=== PATIENT | female | born 1955 | race Caucasian/White ===

== ENCOUNTER 2016-10-13 16:25 | Emergency (ER) | payer OTHER ==
[~2016-10-13] VITALS: Ht 165.1 cm; Wt 85.0 kg
[2016-10-13 16:52] VITALS: Ht 165.1 cm; Wt 85.0 kg
[2016-10-13 21:43] LABS: URINE BLOOD (Dip) POC 1+ (NEGATIVE)
--- NOTE | 2016-10-13 21:55 | ERD ---
ER Documentation Chief Complaint Date/Time DATE: 10/13/16 TIME: 21:43 Chief Complaint RIGHT BREAST PAIN AND ENLARGEMENT.POSSIBLE ABSCESS PER PMD HPI 61-year-old female complaining of right breast pain and enlargement 4 days. Describes the pain as sharp, needling and burning type of sensation. She was sent here by her PCP for a breast ultrasound to rule out possible abscess. Her last mammogram was 2 years ago. Her sister has history of breast cancer. Patient also complaining of suprapubic pain 2 weeks. She was diagnosed with UTI by her PCP, was given Bactrim. She finished Bactrim 4 days ago. Patient is still complaining of suprapubic pain and urinary frequency. States that Bactrim did not help. Denies fever or chills. Denies flank pain. Denies dysuria. ROS All systems reviewed and are negative except as per history of present illness. Medications Home Meds No Active Prescriptions or Reported Meds Allergies Allergies: Coded Allergies: Penicillins (Verified Allergy, Severe, ANAPHALACTIC SHOCK, 09/11/14) PMhx/Soc History of Surgery: Yes (HEMORROIDECTOMY, HYSTERECTOMY, 2 BREASTS BIOPSY, BACK SURGERY) Anesthesia Reaction: No Hx Neurological Disorder: No Hx Respiratory Disorders: No Hx Cardiac Disorders: No Hx Psychiatric Problems: No Hx Miscellaneous Medical Probl: No Hx Alcohol Use: No Hx Substance Use: No Hx Tobacco Use: No Smoking Status: Never smoker Physical Exam Vitals Vital Signs Date Time Temp Pulse Resp B/P Pulse Ox O2 Delivery O2 Flow Rate FiO2 10/13/16 16:52 99.8 84 18 147/76 98 Physical Exam General impression: Well-developed, well-nourished. Alert, oriented, in no acute distress Head: Normocephalic, atraumatic. Neck: Supple, nontender. No lymphanopathy. No nuchal rigidity. Respiration: Normal respiratory effort. Lungs clear to auscultate bilaterally. No wheezes, rales or rhonchi. Cardiovascular: Regular rate and rhythm. No murmurs or extra heart sounds. Abdomen: Abdomen normal to inspection. Nontender. No masses or organomegaly. Bowel sounds normal. Breasts: Right breast slightly larger in appearance than the left, no erythema. Periauricular tenderness, no mass or indurations. No axillary lymph nodes palpated. Back: Normal to inspection. No midline spine tenderness. No CVA tenderness. Neuro: Mental status normal, speech normal. NURSES SUPERVISOR grossly intact. Skin: Normal turgor. No rash or lesions. Psych: Normal mood and affect. Procedures/MDM Urine dip showed 2+ leukocyte, negative nitrite, 1+ blood. She still has a UTI , likely resistant to Bactrim. I doubt pyelonephritis. I will prescribe her with Macrobid. Her breasts has a normal appearance, no sign of abscess. However I was unable to perform breast ultrasound at this time because there is no radiologist for breast ultrasound after hours. I will prescribe patient was medication for pain , and have her come back tomorrow morning to get the breast ultrasound. Patient appears well, stable for discharge and outpatient management. Medical decision making shared with patient and family. Education provided to patient and family. Patient and family expressed understanding of the plan. Medications on discharge: Macrobid, [place]. Follow-up: Primary care provider in 2-3 days or return to ED if worse. KAMALA NAVAS NP Oct 13, 2016 21:54
[2016-10-13] MEDS ORDERED: NITR-58 PO (21:56)
[2016-10-13] MEDS ORDERED: HYDR-906 PO (21:56)
[2016-10-13 22:14] VITALS: BP 142/79; PULSE 80; RESP 18
== END 2016-10-13 22:19 | disposition home or self-care (01) ==
LOC: FTE 16:25
DX: N64.4 Mastodynia (principal); N39.0 Urinary tract infection, site not specified
CPT/HCPCS: 81003; 87086; 99284

== ENCOUNTER 2016-10-14 09:14 | Emergency (ER) | payer OTHER ==
[~2016-10-14] VITALS: Ht 167.6 cm; Wt 98.0 kg
[~2016-10-14 09:14] MED LIST: HYDR-906 PO; NITR-58 PO
[2016-10-14 09:19] VITALS: Ht 167.6 cm; Wt 98.0 kg
[2016-10-14] MEDS ORDERED: ALBUTEROL 0.5% (NEB) 2.5 MG/0.5 ML AMP NEB STA (10:10)
--- NOTE | 2016-10-14 11:12 | RADRPT ---
PROCEDURE: XR Chest. CLINICAL INDICATION: Dyspnea TECHNIQUE: Single frontal chest x-ray. COMPARISON: 08/26/2014 FINDINGS: No acute infiltrate, pleural effusion or pneumothorax is identified. Cardiomediastinal silhouette i s within normal limits. Aortic atherosclerotic calcification is noted. The osseous structures are unremarkable. IMPRESSION: 1. No evidence of acute cardiopulmonary process. 2. Aortic atherosclerosis. RPTAT: QQ .Ajay Suarez MD, MD Date Time Electronically viewed and signed by .Ajay Suarez MD, MD on 10/14/2016 11:11 .R/
--- NOTE | 2016-10-14 14:25 | RADRPT ---
PROCEDURE: Bilateral breast ultrasound. CLINICAL INDICATION: Breast pain. TECHNIQUE: Multiple arnold scale ultrasound images of the whole right and left breast was performed with a high frequency linear transducer. The images were reviewed on a high-resolution PACS monitor . COMPARISON: None available. FINDINGS: Right breast: There is an irregular hypoechoic mass measuring 8 x 5 mm with no internal vascularity and partially indistinct margins. No additional mass, cyst, or sonographic abnormality is identifie d. The axilla is unremarkable. Left breast: There is no mass, cyst, or sonographic abnormality. IMPRESSION: 1. Suspicious irregular 8 mm mass in the right breast at 9 o'clock. 2. No sonographic evidence of malignancy in the left breast. BIRADS 0: Incomplete - Need additional imaging evaluation and/or prior mammograms for comparison. Bi lateral diagnostic mammogram is recommended to complete the workup. However, ultrasound-guided biop sy of the right breast mass is recommended regardless of the mammogram results. RPTAT: GG .Chuy Brandt MD, MD Date Time Electronically viewed and signed by .Chuy Brandt MD, MD on 10/14/2016 14:25 .P/
[2016-10-14 15:15] VITALS: BP 134/71; PULSE 74; RESP 18; TEMP 98.1
--- NOTE | 2016-10-14 17:02 | ERD ---
ER Documentation Chief Complaint Date/Time DATE: 10/14/16 TIME: 16:58 Chief Complaint Sent from MD for ultrasound request HPI 61-year-old female with a past medical history of hemorrhoidectomy and hysterectomy presents to the ED complaining of right breast pain that started intermittently 5 years ago. States that it has been getting worse in the last 2 years. States that her last mammogram was 2 years ago and was negative for any findings. States that her doctor, Dr. Radha Almaraz sent her here for a breast ultrasound. Reports that yesterday her breasts were red and inflamed feeling but denies any nipple discharge. States that she has generalized right breast pain. Denies any chest pain, shortness of breath, wheezing, cough, rhinorrhea, fever, chills, abdominal pain, nausea, vomiting. ROS All systems reviewed and are negative except as per history of present illness. Medications Home Meds Active Scripts Nitrofurantoin Monohyd Macrocr* (Macrobid*) 100 Mg Capsr, 100 MG PO BID for 7 Days, CAP Prov:KAMALA NAVAS. SUPERVISOR PRODUCTION MANAGING 10/13/16 Hydrocodone/Acetaminophen ([place] 5-325 Tablet) 1 Each Tablet, 1 TAB PO Q6H Y for PAIN, #5 TAB Prov:KAMALA NAVAS. SUPERVISOR PRODUCTION MANAGING 10/13/16 Allergies Allergies: Coded Allergies: Penicillins (Verified Allergy, Severe, ANAPHALACTIC SHOCK, 09/11/14) PMhx/Soc History of Surgery: Yes (HEMORROIDECTOMY, HYSTERECTOMY, 2 BREASTS BIOPSY, BACK SURGERY) Anesthesia Reaction: No Hx Neurological Disorder: No Hx Respiratory Disorders: No Hx Cardiac Disorders: No Hx Psychiatric Problems: No Hx Miscellaneous Medical Probl: No Hx Alcohol Use: No Hx Substance Use: No Hx Tobacco Use: No Physical Exam Vitals Vital Signs Date Time Temp Pulse Resp B/P Pulse Ox O2 Delivery O2 Flow Rate FiO2 10/14/16 15:15 98.1 74 18 134/71 98 Room Air 10/14/16 10:32 79 18 96 21 10/14/16 09:19 98.3 78 20 140/73 97 Physical Exam Const: Ymh-sdd-lwkwepcol, well-nourished. In no acute distress. Head: Atraumatic, normocephalic Eyes: Normal Conjunctiva without injection. No purulent discharge. PERRL. EOMI ENT: Normal external ear. Ear canal without erythema. Tympanic membrane pearly arnold without effusion or bulging. Nasal canal clear with normal turbinates. Moist oropharynx without tonsillar exudates. Non-erythematous pharynx. Uvula midline. No drooling. No trismus. Neck: Full range of motion. No meningismus. No cervical lymphadenopathy. Resp: Clear to auscultation bilaterally. No wheezing, rhonchi, rales, or crackles. No accessory muscle use. No retractions. Cardio: Regular rate and rhythm. No murmurs, rubs or gallops. Breast: Generalized tenderness to palpation of right breast. No areolar purulent discharge. No erythema. No edema. Abd: Soft, non tender, non distended. Normal bowel sounds. No palpable masses. No rebound tenderness. No guarding. Skin: No petechiae or rashes Back: No midline tenderness. No CVA tenderness. Ext: No cyanosis, or edema. Neur: Awake and alert. Psych: Normal Mood and Affect Results 24 hrs Current Medications Medications (Trade) Dose Ordered Sig/Roxann Route PRN Reason Start Time Stop Time Status Last Admin Dose Admin Albuterol (Proventil 0.5% (Neb)) 5 mg ONCE STAT NEB 10/14/16 10:10 10/14/16 10:12 DC 10/14/16 10:30 Procedures/MDM 61-year-old female with no significant past medical history presents the ED complaining of right breast pain. Patient is afebrile and nontoxic-appearing. Patient has normal vital signs. Patient was given a breathing treatment here in the ED since she stated that she also has shortness of breath due to having anxiety. She does have a history of asthma. A 5 mg 1 time breathing treatment consisting of albuterol was ordered to further treat patient here in the ED with improvement. Chest xray was ordered to further evaluate patient. PROCEDURE: Bilateral breast ultrasound. CLINICAL INDICATION: Breast pain. TECHNIQUE: Multiple arnold scale ultrasound images of the whole right and left breast was performed with a high frequency linear transducer. The images were reviewed on a high-resolution PACS monitor. COMPARISON: None available. FINDINGS: Right breast: There is an irregular hypoechoic mass measuring 8 x 5 mm with no internal vascularity and partially indistinct margins. No additional mass, cyst , or sonographic abnormality is identified. The axilla is unremarkable. Left breast: There is no mass, cyst, or sonographic abnormality. IMPRESSION: 1. Suspicious irregular 8 mm mass in the right breast at 9 o'clock. 2. No sonographic evidence of malignancy in the left breast. BIRADS 0: Incomplete - Need additional imaging evaluation and/or prior mammograms for comparison. Bilateral diagnostic mammogram is recommended to complete the workup. However, ultrasound-guided biopsy of the right breast mass is recommended regardless of the mammogram results. PROCEDURE: XR Chest. CLINICAL INDICATION: Dyspnea TECHNIQUE: Single frontal chest x-ray. COMPARISON: 08/26/2014 FINDINGS: No acute infiltrate, pleural effusion or pneumothorax is identified. Cardiomediastinal silhouette is within normal limits. Aortic atherosclerotic calcification is noted. The osseous structures are unremarkable. IMPRESSION: 1. No evidence of acute cardiopulmonary process. 2. Aortic atherosclerosis. Patient was noted to have a suspicious irregular 8 mm mass on the 9 o'clock position of the right breast. Strictly instructed patient to follow-up with her primary care physician or NEWS AGENT for further care and treatment with a ultrasound-guided biopsy or mammogram. Differential diagnosis considered include but is not limited to mastitis, fibroadenoma, cyst, fibrocystic changes , galactocele, fat necrosis, malignancy. Low suspicion for sepsis, cellulitis, or other emergent conditions. Follow up with primary care physician in 1-2 days. Instructed patient to return to the ED sooner for any worsening symptoms. Patient's questions were answered. Patient understood and agreed with discharge plan. Patient discharged stable. Departure Diagnosis: Primary Impression: Breast mass, right Condition: Stable Patient Instructions: Breast Mass, Uncertain Cause Referrals: [facility] YOU HAVE RECEIVED A MEDICAL SCREENING EXAM AND THE RESULTS INDICATE THAT YOU DO NOT HAVE A CONDITION THAT REQUIRES URGENT TREATMENT IN THE EMERGENCY DEPARTMENT. FURTHER EVALUATION AND TREATMENT OF YOUR CONDITION CAN WAIT UNTIL YOU ARE SEEN IN YOUR DOCTORS OFFICE WITHIN THE NEXT 1-2 DAYS. IT IS YOUR RESPONSIBILITY TO MAKE AN APPOINTMENT FOR FOLOW-UP CARE. IF YOU HAVE A PRIMARY DOCTOR --you should call your primary doctor and schedule an appointment IF YOU DO NOT HAVE A PRIMARY DOCTOR YOU CAN CALL OUR PHYSICIAN REFERRAL HOTLINE AT IF YOU CAN NOT AFFORD TO SEE A PHYSICIAN YOU CAN CHOSE FROM THE FOLLOWING [facility] [address] [facility]. [facility]818) [phone] [facility]. [facility] [address] [facility] [address] [facility] [address] [facility] [facility]. [address] [facility]. [facility] YOU HAVE RECEIVED A MEDICAL SCREENING EXAM AND THE RESULTS INDICATE THAT YOU DO NOT HAVE A CONDITION THAT REQUIRES URGENT TREATMENT IN THE EMERGENCY DEPARTMENT. FURTHER EVALUATION AND TREATMENT OF YOUR CONDITION CAN WAIT UNTIL YOU ARE SEEN IN YOUR DOCTORS OFFICE WITHIN THE NEXT 1-2 DAYS. IT IS YOUR RESPONSIBILITY TO MAKE AN APPOINTMENT FOR FOLOW-UP CARE. IF YOU HAVE A PRIMARY DOCTOR --you should call your primary doctor and schedule and appointment IF YOU DO NOT HAVE A PRIMARY DOCTOR YOU CAN CALL OUR PHYSICIAN REFERRAL HOTLINE AT . IF YOU CAN NOT AFFORD TO SEE A PHYSICIAN YOU CAN CHOSE FROM THE FOLLOWING [facility] INSTITUTIONS: [facility] [address] [place] [address] [facility] [address] [place] [address] [facility] + [facility] [address] [place] [address] [facility] [place] [address] [facility] [address] [place], [place] [phone] OFFICE FAX VIVIENNE POSEY [address] [place], [place] [phone] [address] [facility] [address] [place], [place] [phone] [place]VIA [place]JAS [address] [facility], [address] [address] [address] [address] [facility] [place], [place] [phone] [facility] [address] [place], [place] [id number] [address] [facility] [id number] - PETTY YU [address] [facility] [phone] [place], [place] [address] [facility]. [address], [facility] [address] [address], [facility] [address] [place], [place] [phone] [facility] Hours: 8:00 am - 5:00 pm Additional Instructions: FOLLOW UP WITH YOUR PRIMARY CARE PHYSICIAN TOMORROW.Return to this facility if you are not improving as expected. SHARON SAEED PA-C Oct 14, 2016 17:02
== END 2016-10-14 15:15 | disposition home or self-care (01) ==
LOC: FTE 09:14
DX: N63 Unspecified lump in breast (principal)
CPT/HCPCS: 71010; 94664

== ENCOUNTER 2016-12-28 09:10 | Emergency (ER) | payer OTHER ==
[~2016-12-28] VITALS: Ht 165.1 cm; Wt 84.0 kg
[~2016-12-28 09:10] MED LIST changes: +[UNRECOGNIZED DRUG - REMARK]
[2016-12-28 09:26] VITALS: Ht 165.1 cm; Wt 84.0 kg
[2016-12-28] MEDS ORDERED: SOD CHLORIDE 0.9% 1,000 ML IV STA (10:02)
[2016-12-28] MEDS ORDERED: ONDANSETRON 4 MG INJ IV STA (10:02)
[2016-12-28] MEDS ORDERED: KETOROLAC 15 MG INJ IV STA (10:02)
--- NOTE | 2016-12-28 10:14 | ERD ---
ER Documentation Chief Complaint Date/Time DATE: 12/28/16 TIME: 10:11 Chief Complaint LOWER BACK PAIN, VAGINAL ITCHING AND BURNING HPI This is a 61-year-old female with no relevant medical problems presenting to the emergency room complaining of achy and sharp right lower back pain rating it 8 out of 10 that radiates down to her pelvic region for the past 2 days. Patient also complains of burning with urination and some mild vaginal itching. Patient denies any vaginal discharge. Patient admits to having mild nausea. She denies any fevers, hematuria, patient states that she took no medications for this. Patient states that her last follow-up with the primary care physician was 1 month ago and states that they have never told her any of the results but she is assuming that everything is normal. Patient is working on following up with a primary care physician ROS All systems reviewed and are negative except as per history of present illness. Medications Home Meds Active Scripts Fluconazole* (Diflucan*) 150 Mg Tablet, 150 MG PO ONCE, #2 TAB Prov:LOUIS GAONA PA-C 12/28/16 Acetaminophen* (Tylenol*) 325 Mg Tablet, 2 TAB PO Q4 Y for PAIN AND OR ELEVATED TEMP, #20 TAB Prov:LOUIS GAONA PA-C 12/28/16 Ciprofloxacin Hcl* (Ciprofloxacin Hcl*) 500 Mg Tablet, 500 MG PO BID, #14 TAB Prov:LOUIS GAONA PA-C 12/28/16 Nitrofurantoin Monohyd Macrocr* (Macrobid*) 100 Mg Capsr, 100 MG PO BID for 7 Days, CAP Prov:KAMALA NAVAS. HEART COORDINATOR 10/13/16 Hydrocodone/Acetaminophen ([place] 5-325 Tablet) 1 Each Tablet, 1 TAB PO Q6H Y for PAIN, #5 TAB Prov:KAMALA NAVAS. HEART COORDINATOR 10/13/16 Allergies Allergies: Coded Allergies: Penicillins (Verified Allergy, Severe, ANAPHALACTIC SHOCK, 12/28/16) PMhx/Soc History of Surgery: Yes (HEMORROIDECTOMY, HYSTERECTOMY, 2 BREASTS BIOPSY, BACK SURGERY) Anesthesia Reaction: No Hx Neurological Disorder: No Hx Respiratory Disorders: No Hx Cardiac Disorders: No Hx Psychiatric Problems: No Hx Miscellaneous Medical Probl: Yes (uti) Hx Alcohol Use: No Hx Substance Use: No Hx Tobacco Use: No Smoking Status: Never smoker Physical Exam Vitals Vital Signs Date Time Temp Pulse Resp B/P Pulse Ox O2 Delivery O2 Flow Rate FiO2 12/28/16 09:26 98.3 71 20 142/79 98 Physical Exam GENERAL: well-developed/well-nourished, in no apparent distress, non-toxic appearing HENT: NC/AT, moist mucous membranes EYES: Conjunctiva normal NECK: Supple, no lymphadenopathy PULM: CTA bilaterally, no rales, rhonchi, or wheezing heard CV: Normal S1S2, RRR, good capillary refill GI: Soft, non-distended,non- tender to palpation Normal bowel sounds, no masses or organomegaly felt on exam No gross peritonitis, no bruits Negative Rovsing, negative Armas, negative McBurney's point, mild CVAT on the right BACK: No masses EXT: No clubbing, cyanosis, or edema NEURO: Alert and Orientated SKIN: Intact, normal turgor PSYCH: Normal mood and mentation Result Diagram: 12/28/16 1020 12/28/16 1020 Results 24 hrs Laboratory Tests Test 12/28/16 10:05 12/28/16 10:20 Urine Color LT. YELLOW Urine Clarity CLEAR Urine pH 6.5 Urine Specific [place] <=1.005 Urine Ketones NEGATIVE Urine Nitrite NEGATIVE Urine Bilirubin NEGATIVE Urine Urobilinogen 0.2 E.U./dL Urine Leukocyte Esterase NEGATIVE Urine Microscopic RBC 5-10/HPF Urine Microscopic WBC 5-10/HPF Urine Epithelial Cells FEW Urine Hemoglobin TRACE Urine Glucose NEGATIVE% Urine Total Protein NEGATIVE White Blood Count 9.110^3/ul Red Blood Count 4.8710^6/ul Hemoglobin 14.6g/dl Hematocrit 44.1% Mean Corpuscular Volume 90.6fl Mean Corpuscular Hemoglobin 30.0pg Mean Corpuscular Hemoglobin Concent 33.1g/dl Red Cell Distribution Width 13.0% Platelet Count 61924^3/UL Mean Platelet Volume 9.8fl Neutrophils % 59.5% Lymphocytes % 29.5% Monocytes % 6.1% Eosinophils % 3.7% Basophils % 1.0% Nucleated Red Blood Cells % 0.0/100WBC Neutrophils # 5.410^3/ul Lymphocytes # 2.710^3/ul Monocytes # 0.610^3/ul Eosinophils # 0.310^3/ul Basophils # 0.110^3/ul Nucleated Red Blood Cells # 0.010^3/ul Sodium Level 139mmol/L Potassium Level 4.4mmol/L Chloride Level 101mmol/L Carbon Dioxide Level 29mmol/L Anion Gap 13 Blood Urea Nitrogen 14mg/dl Creatinine 0.71mg/dl Glucose Level 89mg/dl Calcium Level 9.7mg/dl Total Bilirubin 0.1mg/dl Direct Bilirubin 0.00mg/dl Indirect Bilirubin 0.1mg/dl Aspartate Amino Transf (AST/SGOT) 36IU/L Alanine Aminotransferase (ALT/SGPT) 35IU/L Alkaline Phosphatase 80IU/L Total Protein 8.3g/dl Albumin 4.5g/dl Globulin 3.80g/dl Albumin/Globulin Ratio 1.18 Lipase 172U/L Current Medications Medications (Trade) Dose Ordered Sig/Roxann Route PRN Reason Start Time Stop Time Status Last Admin Dose Admin Sodium Chloride (NS) 1,000 ml @ 1,000 mls/hr Q1H STAT IV 12/28/16 10:02 12/28/16 11:01 DC 12/28/16 10:37 Ondansetron HCl (Zofran Inj) 4 mg ONCE STAT IV 12/28/16 10:02 12/28/16 10:04 DC 12/28/16 10:43 Ketorolac Tromethamine (Toradol) 15 mg ONCE STAT IV 12/28/16 10:02 12/28/16 10:04 DC 12/28/16 10:43 Procedures/MDM This is a 61-year-old female with no relevant medical problems presenting to the emergency room complaining of burning with urination, achy and sharp right lower back pain rating it 8 out of 10 that radiates down to her abdomen/pelvic region for the past 2 days. IV access is established. Lab work was drawn. CBC did not show any evidence of leukocytosis or anemia. CMP did not show any evidence of renal, liver or electrolyte abnormalities. A urinalysis was done and it did show 5-10 white blood cell and 5-10 red blood cell Patient was given Toradol and Zofran through IV with 1 L fluids. I have reassessed patient and she had some improvement I have discussed with patient the importance of a CT scan of the abdomen however patient refused. A renal ultrasound was compromised instead. Radiologist stated - "Unremarkable renal ultrasound. No hydronephrosis." I have reassessed patient and she still continue to have pain therefore she agreed to have a CT scan of the abdomen. CT of the abdomen and pelvis without contrast was done and radiologist stated: 1. Colonic diverticulosis without CT evidence of diverticulitis. 2. No evidence of calcified urinary calculi or obstructive uropathy. 3. Unremarkable appendix. 4. Status post cholecystectomy without biliary ductal dilation. I have done a pelvic exam on the patient, however with insertion of the speculum patient did not want me to go any further and refused a complete examination. I was unable to see the cervix. I did a fungal wet mount of the swab to the vaginal canal. Patient will be treated for a urinary tract infection, candidiasis vaginitis, and will be given medications for abdominal pain. There was no evidence of nephrolithiasis, pyelonephritis, appendicitis, diverticulitis. Patient is suitable to follow-up with her primary care physician for further evaluation management. Discussed return to the emergency room for any worsening signs or symptoms. Patient understands and agrees with this plan Departure Diagnosis: Primary Impression: Flank pain Additional Impressions: UTI (urinary tract infection) Diverticulosis Condition: Stable LOUIS GAONA PA-C Dec 28, 2016 10:14
[2016-12-28 10:23] LABS: ADD UMIC YES; UR BILIRUBIN (Dip) NEGATIVE (NEGATIVE); UR BLOOD (Dip) TRACE (NEGATIVE); UR CLARITY CLEAR (CLEAR); UR COLOR LT. YELLOW (YELLOW); UR GLUCOSE (Dip) NEGATIVE (NEGATIVE); UR KETONES (Dip) NEGATIVE (NEGATIVE); UR LEUKOCYTE ESTERASE (Dip) NEGATIVE (NEGATIVE); UR NITRITE (Dip) NEGATIVE (NEGATIVE); UR TOTAL PROTEIN (Dip) NEGATIVE (NEGATIVE); UR UROBILINOGEN (Dip) 0.2 E.U./dL (0.1-1.0)
[2016-12-28 10:47] LABS: ADD SCAN DIFF NO
[2016-12-28 11:09] LABS: BASOPHIL # 0.1 10^3/ul (0.0-0.1); EOSINOPHILS # 0.3 10^3/ul (0.0-0.5); EOSINOPHILS % 3.7 % (0.0-7.0); HEMATOCRIT 44.1 % (37.0-47.0); HEMOGLOBIN 14.6 g/dl (12.0-16.0); LYMPHOCYTES # 2.7 10^3/ul (0.8-2.9); LYMPHOCYTES % 29.5 % (15.0-51.0); MEAN CORPUSCULAR HGB CONC 33.1 g/dl (32.0-37.0); MEAN CORPUSCULAR VOLUME 90.6 fl (82.0-101.0); MEAN PLATELET VOLUME 9.8 fl (7.4-10.4); MONOCYTE # 0.6 10^3/ul (0.3-0.9); MONOCYTES % 6.1 % (0.0-11.0); NEUTROPHIL # 5.4 10^3/ul (1.6-7.5); NEUTROPHILS % 59.5 % (39.0-77.0); PLATELET COUNT 319 10^3/UL (140-415); RED BLOOD COUNT 4.87 10^6/ul (4.20-5.40); WHITE BLOOD COUNT 9.1 10^3/ul (4.8-10.8)
[2016-12-28 11:13] LABS: ALBUMIN 4.5 g/dl (3.3-4.9); ALBUMIN/GLOBULIN RATIO 1.18; BILIRUBIN,INDIRECT 0.1 mg/dl (0-1.1); BILIRUBIN,TOTAL 0.1 mg/dl (0.2-1.3); CALCIUM 9.7 mg/dl (8.4-10.2); CREATININE 0.71 mg/dl (0.44-1.00); POTASSIUM 4.4 mmol/L (3.5-5.1); TOTAL PROTEIN 8.3 g/dl (6.1-8.1)
--- NOTE | 2016-12-28 12:13 | RADRPT ---
PROCEDURE: US KIDNEYS AND BLADDER CLINICAL INDICATION: Renal insufficiency TECHNIQUE: Sonographic evaluation of the kidneys and bladder was performed using a curved array tr ansducer. COMPARISON: None. FINDINGS: Right kidney measures 11.5 cm in length. Left kidney measures 10.8 cm in length. Normal cortical thickness and echogenicity. No hydronephrosis bilaterally. The incompletely distended bladder is grossly unremarkable. Bilateral ureteral jets are seen. IMPRESSION: Unremarkable renal ultrasound. No hydronephrosis. RPTAT:PP .Jefferson Pappas MD, MD Date Time Electronically viewed and signed by .Jefferson Pappas MD, on 12/28/2016 12:12 .V/
--- NOTE | 2016-12-28 13:13 | RADRPT ---
PROCEDURE: CT Abdomen and pelvis without contrast. CLINICAL INDICATION: flank pain radiating to abdomen TECHNIQUE: CT scan of the abdomen and pelvis without contrast was performed on a multidetector hig h-resolution CT scan. . Coronal and sagittal reformatted images were obtained from the axial [facility] e images. Standard CT scan of the abdomen pelvis without contrast protocols were performed. The total exam CTDI equals 19.05 mGy and the total exam DLP equals 1149.95 mGy-cm. One or more of the following dose reduction techniques were used: - Automated exposure control. - Adjustment of the mA and/or kV according to patient size. Use of iterative reconstruction technique. COMPARISON: Ultrasound same day FINDINGS: The kidneys are normal in size without calcified renal calculi, hydronephrosis or intrarenal masses bilaterally. The ureters are unremarkable. Urinary bladder is partially contracted but otherwise u nremarkable. There is mild scattered colonic diverticulosis but no CT evidence of diverticulitis. Large bowel is otherwise unremarkable. The appendix is unremarkable. There is a small hiatal hernia. The stomac h is otherwise unremarkable. The small bowel is unremarkable. Status post cholecystectomy. No evidence of biliary ductal dilation. The liver spleen pancreas and adrenal glands are unremarkable. Negative for intra-abdominal free air, free fluid, abscesses or lymphadenopathy. There is minimal at herosclerotic vascular disease present. No evidence of abdominal aortic aneurysm or periaortic flui d collections. The lung bases are unremarkable. There is mild degenerative changes lower thoracic and lumbar spine . There are no acute osseous findings. No osteoblastic/osteolytic lesions. There is a tiny fat co ntaining umbilical hernia but no herniated bowel or strangulation. IMPRESSION: 1. Colonic diverticulosis without CT evidence of diverticulitis. 2. No evidence of calcified urinary calculi or obstructive uropathy. 3. Unremarkable appendix. 4. Status post cholecystectomy without biliary ductal dilation. RPTAT:AAJJ Physician Ernesto Date Time Electronically viewed and signed by Physician Ernesto on 12/28/2016 13:12 BM/
[2016-12-28] MEDS ORDERED: ACET325T33 PO (13:40)
[2016-12-28] MEDS ORDERED: CIPR500T4 PO (13:40)
[2016-12-28] MEDS ORDERED: FLUC150T17 PO (13:41)
[2016-12-28 13:58] VITALS: BP 128/68; PULSE 77; RESP 18
== END 2016-12-28 13:59 | disposition home or self-care (01) ==
LOC: FTE 09:10
DX: R10.9 Unspecified abdominal pain (principal); N39.0 Urinary tract infection, site not specified; K57.91 Diverticulosis of intestine, part unspecified, without perforation or abscess with bleeding; R11.0 Nausea
CPT/HCPCS: 74176; 76775; 80053; 81001; 83690; 85025; 87086; 87220; 96374; 96375; 99285; J1885; J2405; J7030; 81003

== ENCOUNTER 2017-05-10 17:54 | Emergency (ER) | payer OTHER ==
[~2017-05-10] VITALS: Ht 160 cm; Wt 80.0 kg
[~2017-05-10 17:54] MED LIST changes: +ACET325T33 PO; +CIPR500T4 PO; +FLUC150T17 PO; -[UNRECOGNIZED DRUG - REMARK]
[2017-05-10 17:58] VITALS: Ht 160 cm; Wt 80.0 kg
--- NOTE | 2017-05-10 21:18 | ERD ---
ER Documentation Chief Complaint Date/Time DATE: 05/10/17 TIME: 21:03 Chief Complaint dusuria x1 week HPI This is a 61-year-old female with a history of multiple urine tract infections who presents to the emergency department for complaints of dysuria, increased frequency which has gradually worsened over the past week. Patient states that she has experienced chills today but denies fever, back pain, abdominal pain, nausea, vomiting, diarrhea. She states she is attempted to treat her symptoms with Tylenol with little relief. ROS All systems reviewed and are negative except as per history of present illness. Medications Home Meds Active Scripts Acetaminophen with Codeine (Acetaminophen-Cod #3 Tablet) 1 Each Tablet, 1 TAB PO Q6H Y for PAIN, #20 TAB Prov:CATY AHMADI PA-C 05/10/17 Ciprofloxacin Hcl* (Ciprofloxacin Hcl*) 500 Mg Tablet, 500 MG PO BID, #14 TAB Prov:CATY AHMADI PA-C 05/10/17 Fluconazole* (Diflucan*) 150 Mg Tablet, 150 MG PO ONCE, #2 TAB Prov:LOUIS GAONA PA-C 12/28/16 Acetaminophen* (Tylenol*) 325 Mg Tablet, 2 TAB PO Q4 Y for PAIN AND OR ELEVATED TEMP, #20 TAB Prov:LOUIS GAONA PA-C 12/28/16 Ciprofloxacin Hcl* (Ciprofloxacin Hcl*) 500 Mg Tablet, 500 MG PO BID, #14 TAB Prov:LOUIS GAONA PA-C 12/28/16 Nitrofurantoin Monohyd Macrocr* (Macrobid*) 100 Mg Capsr, 100 MG PO BID for 7 Days, CAP Prov:KAMALA NAVAS INDIRECT SALES REPRESENTATIVE 10/13/16 Hydrocodone/Acetaminophen ([place] 5-325 Tablet) 1 Each Tablet, 1 TAB PO Q6H Y for PAIN, #5 TAB Prov:KAMALA NAVAS INDIRECT SALES REPRESENTATIVE 10/13/16 Allergies Allergies: Coded Allergies: Penicillins (Verified Allergy, Severe, ANAPHALACTIC SHOCK, 12/28/16) PMhx/Soc History of Surgery: Yes (HEMORROIDECTOMY, HYSTERECTOMY, 2 BREASTS BIOPSY, BACK SURGERY) Anesthesia Reaction: No Hx Neurological Disorder: No Hx Respiratory Disorders: No Hx Cardiac Disorders: No Hx Psychiatric Problems: No Hx Miscellaneous Medical Probl: Yes (uti) Hx Alcohol Use: No Hx Substance Use: No Hx Tobacco Use: No Physical Exam Vitals Vital Signs Date Time Temp Pulse Resp B/P Pulse Ox O2 Delivery O2 Flow Rate FiO2 05/10/17 17:58 98.5 86 18 140/71 99 Physical Exam Const: Well-developed, well-nourished, no acute distress Head: Atraumatic Eyes: Normal Conjunctiva ENT: Normal External Ears, Nose and Mouth. Neck: Full range of motion..~ No meningismus. Resp: Clear to auscultation bilaterally Cardio: Regular rate and rhythm, no murmurs Abd: Soft, non tender, non distended. Normal bowel sounds Skin: No petechiae or rashes Back: No midline or flank tenderness Ext: No cyanosis, or edema Neur: Awake and alert Psych: Normal Mood and Affect Results 24 hrs Laboratory Tests Test 05/10/17 21:03 Urine Color YELLOW Urine Clarity CLEAR Urine pH 5.0 Urine Specific [place] 1.021 Urine Ketones NEGATIVEmg/dL Urine Nitrite NEGATIVEmg/dL Urine Bilirubin NEGATIVEmg/dL Urine Urobilinogen NEGATIVEmg/dL Urine Leukocyte Esterase NEGATIVELeu/ul Urine Microscopic RBC 2/HPF Urine Microscopic WBC 6/HPF Urine Bacteria FEW/HPF Urine Mucus FEW/HPF Urine Hemoglobin 2+mg/dL Urine Glucose NEGATIVEmg/dL Urine Total Protein NEGATIVEmg/dl Procedures/MDM 61-year-old female who is well-known by this ER with a history of multiple urinary tract infections presents to the emergency department for gradually worsening dysuria and increased frequency 1 week, similar to prior episodes. Patient denied fever, abdominal pain, flank pain, nausea, vomiting, diarrhea. She did note chills which she experienced today. Vital signs reviewed, patient afebrile, non-tachycardic, normotensive and non-hypoxic. She was well-appearing , nontoxic and without abdominal or flank tenderness on exam. Urinalysis revealed evidence of Bacteremia and hematuria. Patient received Tylenol in the emergency department and reported improvement of symptoms. History and physical exam consistent with evidence of urinary tract infection. At this time I have low suspicion for pyelonephritis, ovarian torsion, pelvic inflammatory disease, severe systemic illness or sepsis. Based on patient's history of present illness and physical examination the decision was made to discharge. The patient was re-evaluated after ED treatment and stabilizing measures, and symptoms have improved. There is no evidence of life threatening injuries or illnesses at this time. On re-examination, patient resting in no distress, stable vital signs, reports feeling better and safe for discharge with outpatient follow up with PMD in 1-2 days. Patient given return precautions. Departure Diagnosis: Primary Impression: Dysuria Additional Impression: UTI (urinary tract infection) Urinary tract infection type: acute cystitis Hematuria presence: with hematuria Qualified Code: N30.01 - Acute cystitis with hematuria CATY AHMADI PA-C May 10, 2017 21:17
[2017-05-10 21:23] LABS: ADD UMIC YES; UR ASCORBIC ACID NEGATIVE (NEGATIVE); UR BACTERIA FEW /HPF (NONE SEEN); UR BILIRUBIN (Dip) NEGATIVE (NEGATIVE); UR BLOOD (Dip) 2+ mg/dL (NEGATIVE); UR CLARITY CLEAR (CLEAR); UR COLOR YELLOW (YELLOW); UR GLUCOSE (Dip) NEGATIVE (NEGATIVE); UR KETONES (Dip) NEGATIVE (NEGATIVE); UR LEUKOCYTE ESTERASE (Dip) NEGATIVE Leu/ul (NEGATIVE); UR MUCUS FEW /HPF (NONE SEEN); UR NITRITE (Dip) NEGATIVE (NEGATIVE); UR RBC 2 /HPF (0-5); UR SPECIFIC GRAVITY (Dip) 1.021 (1.003-1.030); UR TOTAL PROTEIN (Dip) NEGATIVE (NEGATIVE); UR UROBILINOGEN (Dip) NEGATIVE (NEGATIVE)
[2017-05-10] MEDS ORDERED: CIPR500T4 PO (21:29)
[2017-05-10] MEDS ORDERED: ACET1TAB40 PO (21:29)
[2017-05-10 21:42] VITALS: BP 160/84; PULSE 73; RESP 16; TEMP 97.9
[2017-05-10] MEDS ORDERED: CEFTRIAXONE 500 MG INJ IM ONE (22:00)
[2017-05-10] MEDS ORDERED: ONDANSETRON (ODT) 4 MG TAB ODT STA (22:08)
[2017-05-10] MEDS ORDERED: HYDROCODONE/APAP (5/325) TAB PO ONE (22:30)
== END 2017-05-10 22:42 | disposition home or self-care (01) ==
LOC: FTE 17:54
DX: R30.0 Dysuria (principal); N30.01 Acute cystitis with hematuria
CPT/HCPCS: 81001; 96372; 99284; J0696